=== PATIENT | male | born 1950 | race Caucasian/White ===

== ENCOUNTER 2018-10-19 07:18 | Outpatient (CLI) | payer MEDICARE ==
--- NOTE | 2018-10-19 08:33 | ULT ---
BILATERAL TESTICULAR ULTRASOUND WITH GOVEA SCALE, COLOR FLOW AND SPECTRAL DOPPLER IMAGIN10/19/18 HISTORY: Testicular mass. FINDINGS: The right testis measures 3.9 x 5.1 x 1.6 cm and the left testis measures 2.6 x 5 x 2.2 cm. Flow is d emonstrated to both testes. No testicular mass or microlithiasis is seen. There is a large septated cyst in the region of the right epididymis measuring 7.4 x 5.8 x 8.1 cm. A small left sided epididymal head cyst is noted measuring 5 mm. The right epididymis itself is not vis ualized. The left epididymis demonstrates flow and is otherwise unremarkable. IMPRESSION: 1. No evidence of testicular mass or torsion. 2. Large septated right epididymal cyst versus hydrocele. 3. Small left epididymal head cyst versus spermatocele. POS: [facility]
== END 2018-10-19 07:19 | disposition home or self-care (01) ==
LOC: BICULT 07:18
PROVIDERS: ATTEND Family Medicine
DX: N50.89 Other specified disorders of the male genital organs (principal)
CPT/HCPCS: 76870; 93976

== ENCOUNTER 2018-12-01 07:09 | Outpatient (CLI) | payer MEDICARE ==
[2018-12-01 11:08] LABS: #Eosinphils 0.1 thou/uL (0.0-0.7); #Lymphocytes 1.9 thou/uL (1.20-3.40); #Monocytes 0.7 thou/uL (0.11-0.59); %Basophils 0.4 % (0.0-1.0); %Eosinophils 2.2 % (0.0-10.0); %Lymphocytes 28.4 % (21.0-51.0); %Monocytes 9.8 % (0.0-10.0); %Neutrophils 59.2 % (42.0-75.0); Hemoglobin 16.8 g/dL (14.0-18.0); Mean Corpuscular Hemoglobin 34.3 pg (27.0-31.0); Mean Platelet Volume 7.7 fL (7.4-10.4); Platelet Count 197 thou/uL (130-400); RBC Distribution Width 10.8 % (11.5-14.5); White Blood Cell (WBC) Count 6.8 thou/uL (4.8-10.8)
[2018-12-01 11:11] LABS: Bacteria/HPF None Seen HPF (None Seen); Bilirubin Negative (Negative); Blood, Urine Negative (Negative); Clarity Clear (Clear); Glucose, Urine (Dipstick) Normal (Negative); Leukocyte Negative Leu/uL (Negative); Nitrite Negative (Negative); Protein, Urine (Dipstick) Negative (Neg-Trace); RBC/HPF 0-3 HPF (0-3); Squamous Epithelial None Seen HPF (0-3); Urobilinogen Normal mg/dL (Less than 2); WBC/HPF 0-3 HPF (0-3)
[2018-12-01 11:31] LABS: Anion Gap 13 mmol/L (10-20); BUN (Urea Nitrogen) 22 mg/dL (8.4-25.7); Calc. Creatinine Clearance 0 mL/min (70-130); Carbon Dioxide 25 mmol/L (23-31); Chloride 102 mmol/L (98-107); Estimated GFR-MDRD 44; Glucose 98 mg/dL (80-115); Potassium 4.2 mmol/L (3.5-5.1); Sodium 136 mmol/L (136-145)
--- NOTE | 2018-12-05 17:09 | EKG ---
Test Reason : Blood Pressure : / mmHG Vent. Rate : 061 BPM Atrial Rate : 061 BPM P-R Int : 172 ms QRS Dur : 088 ms QT Int : 404 ms P-R-T Axes : 065 036 042 degrees QTc Int : 406 ms Normal sinus rhythm Normal ECG No previous ECGs available Confirmed by CORRIE VILLEGAS (2) on 12/05/2018 5:09:02 PM Referred By: AAKASH Confirmed By:CORRIE VILLEGAS
== END 2018-12-01 07:10 | disposition home or self-care (01) ==
LOC: LABBT 07:09
PROVIDERS: ATTEND Orthopaedic Surgery Hand Surgery
DX: Z01.818 Encounter for other preprocedural examination (principal); G56.01 Carpal tunnel syndrome, right upper limb; D17.21 Benign lipomatous neoplasm of skin and subcutaneous tissue of right arm; S63.408A Traumatic rupture of unspecified ligament of other finger at metacarpophalangeal and interphalangeal joint, initial encounter
CPT/HCPCS: 80048; 81001; 85025; 93005; 93010

== ENCOUNTER 2018-12-06 11:41 | Observation (INO) | payer MEDICARE ==
[2018-12-06] MEDS ORDERED: Fentanyl 100 MCG/2 ML VIAL ONE ×2 (13:37→13:47)
[2018-12-06] MEDS ORDERED: Midazolam HCl 2 mg/2 ml Vial ONE (13:37)
[2018-12-06] MEDS ORDERED: Ropivacaine 0.5% HCl/PF (150 MG/30 ML VIAL) ONE (13:42)
[2018-12-06] MEDS ORDERED: Ropivacaine 0.2% HCl/PF (40 MG/20 ML VIAL) ONE (13:42)
[2018-12-06] MEDS ORDERED: HYDROcodone/Acetaminophen 10/325 mg Tablet PO PRN ×2 (13:46)
[2018-12-06] MEDS ORDERED: Zolpidem Tartrate 5 MG TAB PO PRN (13:46)
[2018-12-06] MEDS ORDERED: Ropivacaine 0.2% 550 ML 550 ML NERVE BLCK SCH (13:46)
[2018-12-06] MEDS ORDERED: Promethazine HCl 25 MG/ML VIAL IM PRN ×2 (13:46→19:19)
[2018-12-06] MEDS ORDERED: traMADol HCl 50 MG TAB PO PRN ×2 (13:46)
[2018-12-06] MEDS ORDERED: Ondansetron PF 4 MG/2 ML Vial IVP PRN (13:46)
[2018-12-06] MEDS ORDERED: Fentanyl 100 MCG/2 ML VIAL IV PRN (13:47)
[2018-12-06] MEDS ORDERED: Sodium Chloride 0.9% 10 ML ONE (13:53)
[2018-12-06] MEDS ORDERED: Betamet Acet/Betamet Na Ph 30 MG/5 ML VIAL ONE (13:53)
[2018-12-06] MEDS ORDERED: Bupivacaine PF 0.5% 30 ML VIAL ONE (13:53)
[2018-12-06] MEDS ORDERED: Bacitracin Zinc Ointment 30 gm TUBE ONE (13:53)
[2018-12-06] MEDS ORDERED: Rocuronium Bromide 10 MG/ML (10ML VIAL) ONE (14:23)
[2018-12-06] MEDS ORDERED: Dexamethasone 20 MG/5 ML VIAL ONE (14:23)
[2018-12-06] MEDS ORDERED: PROPOFOL 200 MG/20 ML VIAL ONE (14:23)
[2018-12-06] MEDS ORDERED: Lidocaine 1% PF 5 ML VIAL ONE (14:23)
[2018-12-06] MEDS ORDERED: PHENYLEPHRINE-NS 100 MCG/ML 10 ML SYRINGE ONE (14:23)
[2018-12-06] MEDS ORDERED: ePHEDrine 50 MG/ML VIAL ONE (14:23)
[2018-12-06] MEDS ORDERED: HYDROcodone/Acetaminophen 5/325 mg Tablet PO PRN (19:19)
[2018-12-06] MEDS ORDERED: Acetaminophen 325 MG TAB PO PRN (19:19)
[2018-12-06] MEDS ORDERED: Morphine 4 MG/ML VIAL SLOW IVP PRN (19:19)
[2018-12-06] MEDS ORDERED: Ondansetron PF 4 MG/2 ML Vial IV PRN (19:19)
[2018-12-06] MEDS ORDERED: Acetaminophen/Codeine 30-300mg Tablet PO PRN (19:19)
[2018-12-06] MEDS ORDERED: Meperidine HCl/PF 25 MG/ML VIAL IM PRN (19:24)
[2018-12-06] MEDS ORDERED: TETANUS AND DIPHTHERIA TOX/PF 0.5 ML DISP.SYRIN IM SCH (19:30)
[2018-12-06] MEDS ORDERED: Communication Order-Pharmacy FS SCH (19:30)
--- NOTE | 2018-12-06 19:47 | RAD ---
Radiograph right wrist 3 views: DATE: 12/06/2018 HISTORY: 68-year-old male undergoing surgical excision of lipoma and wrist, and undergoing CMC arthroplasty. COMPARISON: None available FINDINGS: A total of 6 fluoroscopic spot images obtained with C-arm in the OR. Initial images demonstrate tissue retractors around the first MCP joint, and ongoing placement of a K irschner wire across the joint. There is a pre-existing ligament anchor at the base of the first proximal phalanx. Subsequently, a wire or pin is placed across the trapezium-trapezoid complex. Later images demonstrat e removal of that wire or pin, and subsequent absence of the trapezium. Another K wire or pin traverses the proximal metadiaphyses of the first and second metacarpals. IMPRESSION: 1. Ongoing resection of the trapezium. 2. Ongoing pin fixation of the first metacarpophalangeal joint.
[2018-12-06 20:32] VITALS: BMI 28.0
[2018-12-06] MEDS: Ketorolac Tromethamine 30 MG/ML VIAL IVP SCH ×2 (20:38→23:28)
[2018-12-06] MEDS: Aspirin 81 mg Enteric Coated Tablet PO SCH (20:54)
[2018-12-07] MEDS: Vancomycin HCl 1 GM in Premix Bag 1 BAG IVPB SCH ×2 (02:58→14:19)
[2018-12-07] MEDS: Ketorolac Tromethamine 30 MG/ML VIAL IVP SCH ×2 (05:27→13:01)
[2018-12-07] MEDS ORDERED: Bismuth Subs 17.5 mg/mL Susp PO PRN ×3 (08:18→09:07)
--- NOTE | 2018-12-07 09:34 | OP ---
DATE OF PROCEDURE: 12/06/2018 PREOPERATIVE DIAGNOSES: 1. Right thumb osteoarthritis, carpometacarpal joint. 2. Right carpal tunnel syndrome. 3. 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 PROCEDURE PERFORMED: 1. Ulnar collateral ligament reconstruction, thumb. 2. Ligament replacement tendon interposition of the thumb. 3. C-arm supervision during the procedure. SPECIMEN: A specimen was sent, lipoma 6 x 3 cm forearm over the ulnar neurovascular bundle and necessitating a neuroplasty. FINDINGS: 1. Stage IV thumb osteoarthritis carpometacarpal joint. 2. Very tight transverse carpal ligament. We identified the first area, a zigzag incision over the neurovascular bundle which lay underneath the lipoma over the ulnar artery and nerve. We placed clips on each vessel. We from the artery to ensure less bleeding after we the tourniquet and we were able to harvest the mass without incident after neuroplasty of the ulnar neurovascular bundle. It was approximately 6 x 3 cm sessile and completely indicative of lipoma with no underlying soft tissue mass. Attention was now turned to the transcarpal ligament. We outlined the incision 2 cm long, stretching from 6 mm distal to the volar wrist flexion crease all the way to the level of the Irwin cardinal line. We then kept the tourniquet inflated, made the small 2 cm incision, carried through skin and subcutaneous tissue. Once we had established the plane and went through skin subcutaneous tissue to the transcarpal ligament, we released transcarpal ligament as far ulnar as possible, found that with complete release, visualized the distal and proximal. We then closed this wound with interrupted 4-0 nylon in mattress pattern. Attention was now turned to the patient's thumb. We then repeated a collateral ligament test and found that he had gross laxity of 45 degrees and stage 2-3 laxity at 0, so felt to have a clinically significant laxity. With the tourniquet still inflated, we made the curvilinear incision which transverses more volarly. We then were able to identify the nerves after entering the skin, retinaculum was spared and tagged and then we were looking down on the redundant capsule. We could also see that there was evidence of previous tear and some pseudotendon scarring had taken place at the base of this area, but there was no other abnormality. Finally, once we had established the appropriate procedures, we turned our attention to the ulnar collateral ligament of thumb. We completely spared the entrance and began to work on the appropriate area. The ulnar collateral ligament then reconstructed using anchor, and this anchor had enough sutures when placed in the distal 5 mm of the remnant of the old collateral ligament, we were able to reach the trough in bone. Once we reached the trough in bone then we pulled the suture into this at 45 degrees, pinned the joint and tied the sutures to hold the construct in excellent condition. We were also able to cut the pin, with only a small amount protruding and bent it away. Attention was then turned to the wrist, during this time, we deflated the tourniquet for closure of the other wounds, and found to have excellent hemostasis and was done so with a running 3-0 Monocryl. We now entered the curvilinear space for hockey-stick incision to approach the palmar and midline carpometacarpal joint of the thumb. We entered the capsule between the primary extensor, abductor pollicis longus and successfully taking muscle and fascia with deep in the palm and then we identified landmarks for the procedure. First we placed a threaded K-wire in what we believed to be the trapezium and it proved to be there, but we removed it en shaheen. Now we established the relationship and we were able to drill, remove the trapezium without complication, spared the flexor carpi radialis with only 2 slides for harvest, we were able to drill with an oblique 45-degree angle and right towards the flexor carpi radialis insertion first with the 2.5 and then with a 3.5 drill bit created an excellent trough. The patient had had the harvested flexor carpi radialis tendon after we reamed this, 3.5, prepared for passage through by harvesting it, sizing it, eliminate some of the with 4-0 chromic suture and this was successful. We now sutured it twice to the bone tunnel after pinning the joint with the appropriate Shenton's line of reduction from the sagittal plane. We were able to obtain excellent hemostasis by inflating the tourniquet after we had placed the FCR through its appropriate tunnel and sutured it. Once this was done to include the suture to itself on the ulnar aspect of the construct, we then took 2 Ba needles, had already placed a buried 3-0 in the posterior medial capsule, placed 1 suture through each of the Ba needles and then wove with "Anchovy" space-filler and then tied a knot here. Tourniquet was now released completely, hemostasis was obtained, and we began to consider closure. The K-wires were then placed in the 1st metacarpal to adjacent, also confirmed to be in excellent position. We then cut and bent all wires and buried them on the skin. We were able to then complete the surgery by obtaining hemostasis, closed all of the carpal tunnel incision after giving 3 mL of Celestone here and we were able to close remaining sutures with a running 4-0 Monocryl except for the carpal tunnel closure, which was traditional. The patient then left the operating room with all procedure performed including carpal tunnel release, lipoma excision, ulnar nerve neuroplasty, left greater than right. The patient then had the cap refill in all digits to be symmetrical, was prepared for return back to the floor, and the patient left the operating room without evidence of anesthetic or operative complications. Please see previously dictated hospital operative note from 12/06/2018. Job ID: [id number]
[2018-12-07] MEDS: Aspirin 81 mg Enteric Coated Tablet PO SCH (09:36)
[2018-12-07 16:00] VITALS: BP 119/71; TEMP 97.7
== END 2018-12-07 17:10 | disposition home or self-care (01) ==
LOC: SDC 11:41 → SURG A 19:19
PROVIDERS: ADMIT Orthopaedic Surgery Hand Surgery; ATTEND Orthopaedic Surgery Hand Surgery
PROC: 0KB90ZZ Excision of Right Lower Arm and Wrist Muscle, Open Approach (ICD-10-PCS; principal; 2018-12-06)
PROC: 01N50ZZ Release Median Nerve, Open Approach (ICD-10-PCS; 2018-12-06)
PROC: 0LX70ZZ Transfer Right Hand Tendon, Open Approach (ICD-10-PCS; 2018-12-06)
PROC: 3E0T3BZ Introduction of Anesthetic Agent into Peripheral Nerves and Plexi, Percutaneous Approach (ICD-10-PCS; 2018-12-06)
DX: M18.11 Unilateral primary osteoarthritis of first carpometacarpal joint, right hand (principal); D17.21 Benign lipomatous neoplasm of skin and subcutaneous tissue of right arm; G56.03 Carpal tunnel syndrome, bilateral upper limbs; G89.18 Other acute postprocedural pain; S63.641A Sprain of metacarpophalangeal joint of right thumb, initial encounter; I10 Essential (primary) hypertension; E78.5 Hyperlipidemia, unspecified; M19.90 Unspecified osteoarthritis, unspecified site; Z21 Asymptomatic human immunodeficiency virus [HIV] infection status; Z88.0 Allergy status to penicillin; Z87.891 Personal history of nicotine dependence; Z79.899 Other long term (current) drug therapy
CPT/HCPCS: 25073; 25447; 26480; 64416; 64721; 73110; 76000; 88304; 88305; 88311; 89060; 96365; 96366; 96375; 96376; A4306; C1713 ×2; G0378 ×2; J0702; J1100; J1885; J2001; J2250; J2704; J2795; J3010; J3370; J3490; S0020

== ENCOUNTER 2018-12-11 20:39 | Emergency (ER) | payer MEDICARE ==
[2018-12-12 00:14] LABS: #Eosinphils 0.3 thou/uL (0.0-0.7); #Lymphocytes 0.7 thou/uL (1.20-3.40); #Monocytes 0.7 thou/uL (0.11-0.59); #Neutrophils 9.3 thou/uL (1.40-6.50); %Eosinophils 2.9 % (0.0-10.0); %Lymphocytes 6.1 % (21.0-51.0); %Monocytes 6.7 % (0.0-10.0); %Neutrophils 84.3 % (42.0-75.0); Mean Corpuscular HGB CONC 35.9 g/dL (32.0-36.0); Mean Corpuscular Hemoglobin 35.5 pg (27.0-31.0); Mean Corpuscular Volume 98.9 fL (78.0-98.0); Mean Platelet Volume 6.9 fL (7.4-10.4); Platelet Count 215 thou/uL (130-400); RBC Distribution Width 10.8 % (11.5-14.5); Red Blood Cell (RBC) Count 4.51 mill/uL (4.70-6.10)
[2018-12-12 00:36] LABS: ALT (SGPT) 19 U/L (8-55); AST (SGOT) 19 U/L (5-34); Albumin 4.1 g/dL (3.4-4.8); Alkaline Phosphatase 90 U/L (40-110); Anion Gap 12 mmol/L (10-20); BUN (Urea Nitrogen) 33 mg/dL (8.4-25.7); Bilirubin, Total 0.6 mg/dL (0.2-1.2); Calc. Creatinine Clearance 0 mL/min (70-130); Carbon Dioxide 26 mmol/L (23-31); Chloride 98 mmol/L (98-107); Estimated GFR-MDRD 28; Globulin 2.7 g/dL (2.4-3.5); Glucose 116 mg/dL (80-115); Potassium 4.7 mmol/L (3.5-5.1); Protein, Total 6.8 g/dL (5.8-8.1); Sodium 131 mmol/L (136-145)
[2018-12-12] MEDS ORDERED: chlorproMAZINE HCl 25 MG TAB PO SCH (01:00)
--- NOTE | 2018-12-12 08:10 | RAD ---
EXAM: CHEST ONE VIEW HISTORY: Nonstop hiccups. COMPARISON: None FINDINGS: The patient is rotated to the right, but the cardiac silhouette and pulmonary vasculature are within normal limits. The lungs are clear. Degenerative changes are seen in the spine. IMPRESSION: No acute cardiopulmonary process.
== END 2018-12-12 02:37 | disposition home or self-care (01) ==
LOC: ERS 20:39
DX: N17.9 Acute kidney failure, unspecified (principal); I12.9 Hypertensive chronic kidney disease with stage 1 through stage 4 chronic kidney disease, or unspecified chronic kidney disease; N18.9 Chronic kidney disease, unspecified; L27.1 Localized skin eruption due to drugs and medicaments taken internally; T36.95XA Adverse effect of unspecified systemic antibiotic, initial encounter; R79.1 Abnormal coagulation profile; B20 Human immunodeficiency virus [HIV] disease; F17.290 Nicotine dependence, other tobacco product, uncomplicated; Z79.899 Other long term (current) drug therapy
CPT/HCPCS: 36415; 71045; 80053; 84484; 85025; 85379; 93005; 96360; Q0161

== ENCOUNTER 2019-11-29 09:52 | Outpatient (CLI) | payer MEDICARE ==
--- NOTE | 2019-11-29 10:35 | ULT ---
ULTRASOUND RETROPERITONEUM LIMTED: (ABDOMINAL AORTA) DATE: 11/29/2019. HISTORY: A 69-year-old male for abdominal aortic aneurysm screening. FINDINGS: The proximal abdominal aorta is obscured by shadowing from overlying bowel gas. There is atheroscler otic irregularity with atherosclerotic calcification throughout the mid and distal abdominal aorta, w ith fusiform dilatation. At the distal abdominal aorta, the outer to outer wall caliber is measured as 3 x 3.5 cm. IMPRESSION: 1) 3.5 cnDistal infrarenal abdominal aortic fusiform aneurysm. 2) Extensive atherosclerosis of the abdominal aorta. MANDY Hart POS: [facility]
--- NOTE | 2019-11-29 10:48 | CT ---
CT pulmonary lung scan without IV contrast INDICATION: Lung cancer screening protocol; smoked for over 40 years; 1 pack per day or less; quit 4 years ago but now does use vaping materialpersonal history of smoking COMPARISON: None FINDINGS: LUNGS: Nodules\mass: No suspicious nodule demonstrated. Emphysema: Mild scattered centrilobular and paraseptal emphysema. Additional findings: Moderate to severe coronary artery and thoracic aortic calcifications. There is also moderate calcifications involving the origin of the left subclavian artery from the aortic arch. Mediastinum: No pathologically enlarged lymph nodes are evident. Upper abdomen: There is a small hiatal hernia. Adrenal glands are normal appearing. There is scattere d colonic diverticulosis. Osseous structures: No acute abnormality.. There is scattered degenerative and osteoarthritic change present. IMPRESSION: Lung-RADS Category 2: Benign- Continue annual screening with LDCT in 12 months Category S: Mild scattered emphysema. Moderate to severe coronary artery and thoracic aortic calcific ations with moderate calcifications involving the origin of the left subclavian artery. Small hiatal hernia. Colonic diverticulosis Category C: Not applicable.
== END 2019-11-29 09:53 | disposition home or self-care (01) ==
LOC: BICULT 09:52
PROVIDERS: ATTEND Family Medicine
DX: Z12.2 Encounter for screening for malignant neoplasm of respiratory organs (principal); Z13.6 Encounter for screening for cardiovascular disorders; Z87.891 Personal history of nicotine dependence; J43.2 Centrilobular emphysema; I25.10 Atherosclerotic heart disease of native coronary artery without angina pectoris; I70.0 Atherosclerosis of aorta; I70.8 Atherosclerosis of other arteries; K44.9 Diaphragmatic hernia without obstruction or gangrene; K57.30 Diverticulosis of large intestine without perforation or abscess without bleeding; I71.4 Abdominal aortic aneurysm, without rupture
CPT/HCPCS: 76775; G0297